=== PATIENT | female | born 2000 | race Caucasian/White ===

== ENCOUNTER 2019-06-12 01:51 | Inpatient (IN) | payer OTHER ==
[~2019-06-12] VITALS: Ht 152.4 cm; Wt 67.5 kg
[~2019-06-12 01:51] MED LIST: LEVO500T48 PO; METR500T PO; RTPRO5 IH
[2019-06-12 03:10] VITALS: BP 109/73; PULSE 83; RESP 18
[2019-06-12 03:18] VITALS: Ht 152.4 cm; Wt 67.5 kg
[2019-06-12] MEDS ORDERED: NACL 0.9% 3 ML SYG IV SCH (04:00)
[2019-06-12] MEDS ORDERED: ACETAMINOPHEN 325 MG TAB PO PRN (04:00)
[2019-06-12] MEDS: SOD CHLORIDE 0.9% 1,000 ML IV SCH ×2 (04:42→16:48)
[2019-06-12] MEDS: ONDANSETRON 4 MG INJ IV PRN ×2 (05:32→12:46)
[2019-06-12] MEDS: KETOROLAC 30 MG INJ IV PRN (06:27)
[2019-06-12] MEDS: METOCLOPRAMIDE 10 MG INJ IV PRN ×2 (06:55→15:35)
[2019-06-12 07:49] VITALS: BP 122/67; PULSE 92; RESP 19
[2019-06-12] MEDS: FAMOTIDINE 20 MG INJ IV SCH ×2 (08:37→20:41)
[2019-06-12] MEDS ORDERED: CEFTRIAXONE 1 GM/50 ML (PMX) 50 ML IVPB SCH (09:00)
[2019-06-12] MEDS ORDERED: PIPER-TAZO 3.375 GM IV (PMX) 100 ML IVPB SCH (12:00)
[2019-06-12 15:17] VITALS: BP 112/70; PULSE 77; RESP 19
[2019-06-12] MEDS: ONDANSETRON INJ 8 MG in SOD CHLORIDE 0.9% 50 ML IV PRN (19:15)
[2019-06-12 19:40] VITALS: BP 113/69; PULSE 74; RESP 18
[2019-06-12] MEDS: METOCLOPRAMIDE 10 MG INJ IV SCH (20:41)
[2019-06-12] MEDS: ZOLPIDEM 5 MG TAB PO PRN (20:42)
[2019-06-12] MEDS ORDERED: ONDANSETRON 4 MG INJ IV PRN (22:00)
[2019-06-13] MEDS: ONDANSETRON INJ 8 MG in SOD CHLORIDE 0.9% 50 ML IV PRN ×3 (01:06→17:57)
[2019-06-13 02:15] VITALS: BP 125/75; PULSE 87; RESP 18
[2019-06-13] MEDS: METOCLOPRAMIDE 10 MG INJ IV SCH ×4 (02:19→20:58)
[2019-06-13] MEDS: SOD CHLORIDE 0.9% 1,000 ML IV SCH (02:24)
[2019-06-13] MEDS: KETOROLAC 30 MG INJ IV PRN ×2 (02:24→10:10)
[2019-06-13] MEDS ORDERED: BISACODYL 10 MG SUPP PR ONE (02:30)
[2019-06-13 07:24] VITALS: BP 115/65; PULSE 64; RESP 18
[2019-06-13] MEDS: FAMOTIDINE 20 MG INJ IV SCH (10:10)
[2019-06-13] MEDS ORDERED: BARIUM SULF 2% 450 ML BTL (BERRY SMOOTHIE) PO ONE (13:00)
[2019-06-13] MEDS: DOCUSATE SODIUM 100 MG CAP PO SCH ×2 (13:00→20:58)
[2019-06-13] MEDS: LACTATED RINGER'S 1,000 ML IV SCH (14:23)
[2019-06-13] MEDS ORDERED: IOHEXOL 300MG/ML 150 ML BTL ONE (16:58)
[2019-06-13] MEDS ORDERED: SOD CHLORIDE 0.9% 100 ML ONE (16:58)
[2019-06-13] MEDS: SUCRALFATE (100 MG/ML) 10ML CUP PO SCH ×2 (17:00→21:00)
[2019-06-13] MEDS: PANTOPRAZOLE (EC) 40 MG TAB PO SCH (17:48)
[2019-06-13 20:30] VITALS: BP 110/64; PULSE 71; RESP 18
[2019-06-13] MEDS: ZOLPIDEM 5 MG TAB PO PRN (20:58)
[2019-06-14] MEDS: LACTATED RINGER'S 1,000 ML IV SCH ×3 (00:03→20:30)
[2019-06-14] MEDS: ONDANSETRON INJ 8 MG in SOD CHLORIDE 0.9% 50 ML IV PRN ×2 (00:03→06:21)
[2019-06-14] MEDS: METOCLOPRAMIDE 10 MG INJ IV SCH ×4 (02:09→20:32)
[2019-06-14] MEDS: KETOROLAC 30 MG INJ IV PRN (02:10)
[2019-06-14 02:30] VITALS: BP 112/65; PULSE 80; RESP 18
[2019-06-14] MEDS: PANTOPRAZOLE (EC) 40 MG TAB PO SCH ×2 (06:21→18:32)
[2019-06-14 07:30] VITALS: BP 114/72; PULSE 70; RESP 18
[2019-06-14] MEDS: DOCUSATE SODIUM 100 MG CAP PO SCH ×2 (09:00→20:37)
[2019-06-14] MEDS: SUCRALFATE (100 MG/ML) 10ML CUP PO SCH ×4 (09:51→20:31)
[2019-06-14] MEDS: LEVOFLOXACIN 500MG/D5W (PMX) 100 ML IVPB SCH (11:48)
[2019-06-14] MEDS ORDERED: traMADol-APAP 37.5-325 1 TAB PO PRN (12:00)
[2019-06-14] MEDS: metroNIDAZOLE 500 MG TAB PO SCH ×2 (13:18→18:32)
[2019-06-14 14:00] VITALS: BP 124/76; PULSE 70; RESP 20
[2019-06-14 19:58] VITALS: BP 126/66; PULSE 65; RESP 18
[2019-06-14] MEDS ORDERED: ZOLPIDEM 5 MG TAB PO PRN (23:30)
[2019-06-15] MEDS: LACTATED RINGER'S 1,000 ML IV SCH ×2 (00:08→12:50)
[2019-06-15] MEDS: metroNIDAZOLE 500 MG TAB PO SCH ×4 (00:08→19:03)
[2019-06-15] MEDS: METOCLOPRAMIDE 10 MG INJ IV SCH ×4 (01:00→19:03)
[2019-06-15 02:00] VITALS: BP 112/74; PULSE 67; RESP 19
[2019-06-15] MEDS: PANTOPRAZOLE (EC) 40 MG TAB PO SCH ×2 (06:37→19:03)
[2019-06-15 07:50] VITALS: BP 117/79; PULSE 66; RESP 18
[2019-06-15] MEDS: SUCRALFATE (100 MG/ML) 10ML CUP PO SCH ×4 (09:12→20:32)
[2019-06-15] MEDS: DOCUSATE SODIUM 100 MG CAP PO SCH ×2 (09:13→20:33)
[2019-06-15] MEDS: LEVOFLOXACIN 500MG/D5W (PMX) 100 ML IVPB SCH (10:19)
[2019-06-15 14:08] VITALS: BP 123/77; PULSE 59; RESP 18
[2019-06-15 19:44] VITALS: BP 117/59; PULSE 70; RESP 16
[2019-06-16] MEDS: METOCLOPRAMIDE 10 MG INJ IV SCH ×3 (00:01→13:23)
[2019-06-16] MEDS: metroNIDAZOLE 500 MG TAB PO SCH ×4 (00:01→17:13)
[2019-06-16] MEDS: ZOLPIDEM 5 MG TAB PO PRN (00:01)
[2019-06-16] MEDS: LACTATED RINGER'S 1,000 ML IV SCH (00:02)
[2019-06-16 02:00] VITALS: BP 116/65; PULSE 75; RESP 18
[2019-06-16] MEDS: PANTOPRAZOLE (EC) 40 MG TAB PO SCH ×2 (06:41→17:13)
[2019-06-16 07:35] VITALS: BP 112/62; PULSE 68; RESP 19
[2019-06-16] MEDS: DOCUSATE SODIUM 100 MG CAP PO SCH ×2 (09:00→09:41)
[2019-06-16] MEDS ORDERED: POTASSIUM CHLORIDE (SR) 20 MEQ TAB PO STA (09:01)
[2019-06-16] MEDS ORDERED: MAGNESIUM SULFATE 2 GM/50 ML 50 ML IVPB ONE (09:30)
[2019-06-16] MEDS: SUCRALFATE (100 MG/ML) 10ML CUP PO SCH ×3 (09:42→17:13)
[2019-06-16] MEDS: LEVOFLOXACIN 500MG/D5W (PMX) 100 ML IVPB SCH (11:55)
[2019-06-17] MEDS ORDERED: LEVOFLOXACIN 500 MG TAB PO SCH (06:00)
== END 2019-06-16 18:50 | disposition home or self-care (01) | DRG 392 ==
LOC: MS1 02:51
PROVIDERS: ADMIT Internal Medicine; ATTEND Internal Medicine
DX: K57.32 Diverticulitis of large intestine without perforation or abscess without bleeding (principal); A08.4 Viral intestinal infection, unspecified; K80.20 Calculus of gallbladder without cholecystitis without obstruction; F12.90 Cannabis use, unspecified, uncomplicated; R11.2 Nausea with vomiting, unspecified; F17.200 Nicotine dependence, unspecified, uncomplicated
CPT/HCPCS: 74177; 76705; 80048; 80053; 80061; 81003; 82150; 83036; 83690; 83735; 84100; 84443; 84703; 85025; 85651; 87086; J0696; J1885; J1956; J2405; J2543; J2765; J3475; J7030; J7120; Q9967